=== PATIENT | female | born 1965 | race American Indian/Alaskan Native ===

== ENCOUNTER 2019-12-21 11:46 | Outpatient (CLI) | payer OTHER ==
--- NOTE | 2019-12-21 14:12 | XRay Report ---
LEFT SHOULDER 3 VIEWS INDICATION: LEFT SHOULDER PAIN. COMPARISON: None. IMPRESSION: No acute osseous or soft tissue abnormality. Minimal osteoarthritic changes are ident ified at the acromioclavicular joint and glenohumeral joint. Signer Name: Momo Cerrato Jr, MD Signed: 12/21/2019 2:08 PM Workstation Name: [id number]
== END 2019-12-21 11:47 | disposition home or self-care (01) ==
LOC: XRAY 11:46
PROVIDERS: ATTEND Internal Medicine
DX: M19.012 Primary osteoarthritis, left shoulder (principal)